=== PATIENT | male | born 1960 | race Caucasian/White ===

== ENCOUNTER 2018-07-30 05:27 | Observation (INO) | payer OTHER ==
[2018-07-30] MEDS ORDERED: THROMBIN (BOVINE) 20,000 UNIT VIAL TP ONE (08:48)
[2018-07-30] MEDS ORDERED: LIDOCAINE HCL 2% PF 100MG/5ML VIAL IJ ONE (08:48)
[2018-07-30] MEDS ORDERED: HYDROmorphone HCL/PF 2 MG/ML VIAL ONE (08:48)
[2018-07-30] MEDS ORDERED: LABETALOL HCL 20 MG/4 ML SYRINGE IV ONE (08:48)
[2018-07-30] MEDS ORDERED: DEXAMETHASONE SODIUM PHOSPHATE 10 MG/ML VIAL ONE (08:48)
[2018-07-30] MEDS ORDERED: PHENYLEPHRINE HCL 10 MG/1 ML ONE (08:48)
[2018-07-30] MEDS ORDERED: NORMAL SALINE 1,000 ML IV.SOLN IV ONE (08:48)
[2018-07-30] MEDS ORDERED: LACTATED RINGERS 1,000 ML IV.SOLN IV ONE ×2 (08:48)
[2018-07-30] MEDS ORDERED: MIDAZOLAM HCL 2 MG/2 ML VIAL ONE (08:48)
[2018-07-30] MEDS ORDERED: NALOXONE HCL 0.4 MG/ML AMP ONE (08:48)
[2018-07-30] MEDS ORDERED: LEVALBUTEROL NEB 1.25 MG/3 ML VIAL.NEB NEB ONE ×2 (08:48→21:00)
[2018-07-30] MEDS ORDERED: IPRATROPIUM/ALBUTEROL SULFATE 3 ML AMPUL.NEB NEB ONE (08:48)
[2018-07-30] MEDS ORDERED: ONDANSETRON HCL/PF 4 MG/ 2ML VIAL ONE (08:48)
[2018-07-30] MEDS ORDERED: ceFAZolin SODIUM 1 GM VIAL ONE (08:48)
[2018-07-30] MEDS ORDERED: SEVOFLURANE 250 ML LIQUID IH ONE (08:48)
[2018-07-30] MEDS ORDERED: GELATIN SPONGE,ABSORB/PORCINE (SIZE 100) 1 EACH SPONGE TP ONE (08:48)
[2018-07-30] MEDS ORDERED: SUCCINYLCHOLINE CHLORIDE 200 MG/10 ML VIAL ONE (08:48)
[2018-07-30] MEDS ORDERED: BACITRACIN 50,000 UNIT VIAL IR ONE (08:48)
[2018-07-30] MEDS ORDERED: FUROSEMIDE 20 MG/2 ML VIAL ONE (08:48)
[2018-07-30] MEDS ORDERED: ROCURONIUM BROMIDE 10 MG/ML 5ML VIAL ONE (08:48)
[2018-07-30] MEDS ORDERED: SUGAMMADEX SODIUM 200 MG/2 ML VIAL IV ONE (08:48)
[2018-07-30] MEDS ORDERED: methylPREDNISolone SOD SUCC 125 MG/2 ML VIAL ONE (08:48)
[2018-07-30] MEDS ORDERED: PROPOFOL 200 MG/20 ML VIAL IV ONE (08:48)
[2018-07-30] MEDS ORDERED: MEMANTINE HCL 10 MG TABLET PO ONE (20:41)
[2018-07-30] MEDS ORDERED: HEPARIN SODIUM 5000 UNIT/1 ML ONE (20:41)
[2018-07-31] MEDS ORDERED: ACETAMINOPHEN 500 MG TABLET ONE (06:19)
[2018-07-31] MEDS ORDERED: LEVALBUTEROL NEB 1.25 MG/3 ML VIAL.NEB NEB ONE (06:25)
[2018-07-31] MEDS ORDERED: MEMANTINE HCL 10 MG TABLET PO ONE (10:00)
[2018-07-31] MEDS ORDERED: VENLAFAXINE HCL 37.5 MG CAP.ER.24H PO ONE (10:00)
[2018-07-31] MEDS ORDERED: HEPARIN SODIUM 5000 UNIT/1 ML ONE (10:00)
[2018-08-04 10:04] LABS: eGFR (Non-African) > 60
[2018-08-04 10:05] LABS: BASOPHILS % 0.2 % (0.0-1.5); NEUTROPHILS # 10.4 # k/uL (1.4-7.7)
[2018-08-05 11:59] LABS: BASOPHILS % 0.6 % (0.0-1.5); NEUTROPHILS # 15.2 # k/uL (1.4-7.7); eGFR (Non-African) > 60
--- NOTE | 2018-09-09 10:03 | Operative Note ---
PREOPERATIVE DIAGNOSIS: Herniated nucleus pulposus with foraminal and central stenosis, C3-4. POSTOPERATIVE DIAGNOSIS: Herniated nucleus pulposus with foraminal and central stenosis, C3-4. PROCEDURES PERFORMED: 1. Radical anterior cervical discectomy, C3-4, for herniated nucleus pulposus. 2. Partial vertebrectomy of the posterior inferior aspect of the C3 vertebral body for decompression of central and bilateral foraminal stenosis. 3. Partial vertebrectomy of the posterior superior aspect of the C4 vertebral body for decompression of central and bilateral foraminal stenosis. 4. Insertion of ProDisc-C cervical total disc replacement arthroplasty at the C3-4 level. 5. Intraoperative fluoroscopy and interpretation for needle placement. SURGEON: Perfecto Hidalgo Jr., M.D. PRESSFITTER: DEYANIRA Ayala BC ANESTHESIA: General. COMPLICATIONS: None. CONDITION FOLLOWING THE PROCEDURE: Good. OPERATIVE FINDINGS: This patient is suffering from a herniated nucleus pulposus at C3-4 causing bilateral foraminal and central stenosis. Degenerative disc disease is also present. The patient is advised of complications and outcomes and is willing to proceed with cervical total disc replacement arthroplasty in lieu of a fusion to resolve his symptoms. Intraoperative films documented good positioning of the arthroplasty and it was of the appropriate size and height. DESCRIPTION OF PROCEDURE: The patient was taken to the operating room and intravenous antibiotics administered. The neck was shaved to the degree necessary. Steri-Drapes were applied at the intended surgical site edges. The surgical site was then scrubbed and prepped to sterility. Sterile draping then occurred. X-ray was brought into position and a radiographic marker was placed identifying the extended center line of the disc for intended surgical care. Beginning at the midline, a transverse surgical incision was made extending to the left approximately 2 cm. Once the epidermis was penetrated, the dermis was incised with electrocautery. Dissection through the subcutaneous tissue with Metzenbaum scissors and digitally was performed down until the interval between the trachea and the carotid triangle and the esophagus was clearly established down to the Longus colli muscles on the left side of the anterior cervical spine at the C3-4 level. Gentle retraction of the trachea and esophagus occurred to the right side while Kitner retractors were used to bluntly open the prevertebral fascia and reveal the annulus. Into the annulus was placed a safety needle and all retractors were removed and x-rays taken to confirm midline placement of the needle, and that the correct anatomic level was still identified. Electrocautery was then used to elevate the Longus colli muscles after [facility] Retractor blades were replaced. The needle had been removed. The Weaving Loom Operator tined retractor blades of the appropriate length were then inserted under the Longus colli muscles and retracted to reveal the anterior disc space sufficiently from left to right. The annulus was then incised with a #15 blade scalpel and removed. Pituitary rongeurs were then used to begin to evacuate the disc material. North Star pins were then inserted into the midportion of the vertebral body anteriorly above and below the affected disc. North Star retractor was then placed and distraction began. This allowed larger pituitary rongeurs to be inserted and all disc material was removed back to the impinging posterior osteophytes. A curette was then used and the endplates were curettaged until all cartilaginous material was removed, exposing bleeding bone. A smaller curette was then used to penetrate the posterior osteophyte all the way down to the removal of a portion of the posterior longitudinal ligament revealing the dura. Once the dura was visualized, a combination of 1- and 2-mm Kerrison rongeurs were inserted beneath the posterior longitudinal ligament and resection began of the posterior longitudinal ligament and associated osteophytes and bone spurs emanating posteriorly causing the posterior and lateral recess stenosis. Once the osteophytes had been resected to sufficiency as documented radiographically and laterally as documented by using a nerve hook to prove complete decompression, Gelfoam was used as necessary to control hemostasis. The appropriate implant sizing tools were then used to establish the appropriate width, depth, and height for implant placement. Any osteophytes anteriorly necessary to remove were then also removed with a Kerrison rongeur to allow access and placement of the implant. The cervical total disc replacement implant of the appropriate size was then affixed to the carrier and impacted into the midline position as determined radiographically. The lateral C-arm fluoroscopy visualization was then used to drive the implant to the desired depth as determined radiographically. The device for removing the implant insertion tool was used and the implant insertion tool was removed. The implant carrier was then grasped in the appropriate tool, loosened and removed, leaving the implant in place. For the purpose of this portion of the process, the North Star retractor was placed into a compression mode to securely hold on to the implant while the insertion tools were removed. Following this, irrigation was carried out. The retractor was then removed and the wound examined for hemostasis, which was confirmed to be present. The North Star pins had been removed and bone wax placed in the vertebral body holes left by the North Star pin insertion to achieve hemostasis. A 3-0 Vicryl suture approximated the subcutaneous tissue. A 5-0 Vicryl then approximated the subcuticular tissue. Dermabond then approximated the epidermis. A sterile dressing was applied and the patient was taken to the recovery room in good condition where normal motor and sensory examination was confirmed to be present. PERFECTO HIDALGO JR., M.D. ANTHONY/cjmaya (Please copy [facility] provider when applicable) Job #[id number] IKE
== END 2018-07-31 10:00 | disposition home or self-care (01) ==
LOC: SOUTH 05:27 → UNDOADMOB 15:56 → SOUTH 15:56 → UNDODISOB 07-31 10:00
PROVIDERS: ADMIT Family Medicine; ATTEND Family Medicine
DX: M50.20 Other cervical disc displacement, unspecified cervical region (principal)
CPT/HCPCS: 36415; 71045; 80048; 80053; 84484; 85025; 86885; 86900; 86920; 93005; 99218; G0378; G0379; J0330; J0690; J1170; J1644; J1940; J2001; J2250; J2310; J2370; J2405; J2704; J2930; J3490; J7030; J7120; J7614